=== PATIENT | male | born 1985 | race Caucasian/White ===

== ENCOUNTER 2016-10-22 06:40 | Emergency (ER) | payer BC, OTHER ==
[2016-10-22 08:02] LABS: Hematocrit 46 % (42-52); Hemoglobin 15.5 g/dl (14.0-18.0); Mean Corpuscular HGB Conc 34 g/dl (31-36); Mean Corpuscular Hemoglobin 30 pg (27-31); Mean Corpuscular Volume 89 fL (80-94); Mean Platelet Volume 9 um3 (7.4-10.4); Red Blood Count 5.13 10^6/ul (4.0-5.4); Red Cell Distribution Width 13 % (10.5-15); White Blood Count 9.8 10^3/ul (3.5-10.8)
[2016-10-22 08:14] LABS: Albumin 4.5 g/dL (3.2-5.2); BUN/Creatinine Ratio 16.5 (8-20); Calcium 9.7 mg/dL (8.6-10.3); EGFR African American 115.4 (>60); EGFR Non-African American 89.7 (>60); Globulin 3.5 g/dL (2-4); Potassium 4.1 mmol/L (3.5-5.0); Total Bilirubin 0.5 mg/dL (0.2-1.0)
[2016-10-22 08:38] LABS: Urine Bilirubin Negative (Negative); Urine Glucose Negative (Negative); Urine Nitrite Negative (Negative)
[2016-10-22 08:41] LABS: TSH (Thyroid Stimulating Horm) 2.61 mcIU/mL (0.34-5.60)
--- NOTE | 2016-10-22 10:06 | ED ---
Neville Patel Anna, scribed for Galen Lopez MD on 10/22/16 at 0707 . GI/ HPI - HPI Summary HPI Summary: Patient is a 31 y/o male coming to [facility] presenting with sudden onset of generalized weakness that began two evenings ago. He ate wings, burgers, and a few beers two days ago, then experienced weakness followed by emesis. He went to sleep and then woke up feeling better. He went to work yesterday and ate his lunch normally at 1100. He then felt a loss of appetite at 1300. He was seen at [facility] at 1400 yesterday. He continues to feel weak but denies nausea or pain. He reports that he normally does not drink water, just soda. He has been drinking Gatorade. - History of Current Complaint Chief Complaint: EDWeakness Stated Complaint: GENERAL ILLNESS/WEAKNESS Hx Obtained From: Patient, Family/Licensed Certified Orthotist - Accompanied by Onset/Duration: Started Days Ago, Still Present Timing: Intermittent, Lasting Days Pain Intensity: 0 - Allergy/Home Medications Allergies/Adverse Reactions: Allergies Allergy/AdvReac Type Severity Reaction Status Date / Time No Known Allergies Allergy Verified 05/28/14 18:25 PMH/Surg Hx/FS Hx/Imm Hx Cardiovascular History: Reports: Hx Hypertension Respiratory History: Reports: Hx Sleep Apnea Infectious Disease History: No Infectious Disease History: Denies: Traveled Outside the [place] in Last 30 Days - Family History Known Family History: Positive: Hypertension - Hx in mother and father Negative: Cardiac Disease, Diabetes - Social History Occupation: Employed Full-time Lives: With Family Alcohol Use: Occasionally Substance Use Type: Reports: None Hx Tobacco Use: Yes Type: Smokeless Tobacco Amount Used/How Often: 1 tin/day Review of Systems Positive: Other - Loss of appetite Positive: Vomiting. Negative: Abdominal Pain, Nausea Positive: Weakness All Other Systems Reviewed And Are Negative: Yes Physical Exam Triage Information Reviewed: Yes Vital Signs On Initial Exam: Initial Vitals Temp Pulse Resp BP Pulse Ox 96.9 F 82 18 174/96 100 10/22/16 06:47 10/22/16 06:47 10/22/16 06:47 10/22/16 06:47 10/22/16 06:47 Vital Signs Reviewed: Yes Appearance: Positive: Well-Appearing, No Pain Distress, Obese Skin: Positive: Warm, Skin Color Reflects Adequate Perfusion, Dry Head/Face: Positive: Normal Head/Face Inspection Eyes: Positive: Normal ENT: Positive: Normal ENT inspection Neck: Positive: Supple, Nontender Respiratory/Lung Sounds: Positive: Clear to Auscultation, Breath Sounds Present Cardiovascular: Positive: RRR Abdomen Description: Positive: Nontender, Soft Bowel Sounds: Positive: Present Musculoskeletal: Positive: Normal Neurological: Positive: Normal Psychiatric: Positive: Affect/Mood Appropriate Diagnostics - Vital Signs Vital Signs Temp Pulse Resp BP Pulse Ox 10/22/16 06:52 80 99 10/22/16 06:47 96.9 F 82 18 174/96 100 - Laboratory Lab Results: Lab Results 10/22/16 10/22/16 10/22/16 Range/Units 07:42 07:45 07:45 WBC 9.8 (3.5-10.8) 10^3/ul RBC 5.13 (4.0-5.4) 10^6/ul Hgb 15.5 (14.0-18.0) g/dl Hct 46 (42-52) % MCV 89 (80-94) fL MCH 30 (27-31) pg MCHC 34 (31-36) g/dl RDW 13 (10.5-15) % Plt Count 328 (150-450) 10^3/ul MPV 9 (7.4-10.4) um3 Neut % (Auto) 71.4 (38-83) % Lymph % (Auto) 20.4 L (25-47) % Jay % (Auto) 6.8 (1-9) % Eos % (Auto) 0.5 (0-6) % Baso % (Auto) 0.9 (0-2) % Absolute Neuts (auto) 7.0 (1.5-7.7) 10^3/ul Absolute Lymphs (auto) 2.0 (1.0-4.8) 10^3/ul Absolute Monos (auto) 0.7 (0-0.8) 10^3/ul Absolute Eos (auto) 0.1 (0-0.6) 10^3/ul Absolute Basos (auto) 0.1 (0-0.2) 10^3/ul Absolute Nucleated RBC 0 10^3/ul Nucleated RBC % 0 Sodium 137 (133-145) mmol/L Potassium 4.1 (3.5-5.0) mmol/L Chloride 101 (101-111) mmol/L Carbon Dioxide 28 (22-32) mmol/L Anion Gap 8 (2-11) mmol/L BUN 16 (6-24) mg/dL Creatinine 0.97 (0.67-1.17) mg/dL Est GFR ( Amer) 115.4 (>60) Est GFR (Non-Af Amer) 89.7 (>60) BUN/Creatinine Ratio 16.5 (8-20) Glucose 108 H (70-100) mg/dL Lactic Acid (0.5-2.0) mmol/L Calcium 9.7 (8.6-10.3) mg/dL Total Bilirubin 0.50 (0.2-1.0) mg/dL AST 25 (13-39) U/L ALT 31 (7-52) U/L Alkaline Phosphatase 84 (34-104) U/L Troponin I 0.00 (<0.04) ng/mL Total Protein 8.0 (6.4-8.9) g/dL Albumin 4.5 (3.2-5.2) g/dL Globulin 3.5 (2-4) g/dL Albumin/Globulin Ratio 1.3 (1-3) TSH 2.61 (0.34-5.60) mcIU/mL Urine Color Yellow Urine Appearance Clear Urine pH 5.0 (5-9) Ur Specific [place] 1.023 (1.010-1.030) Urine Protein Negative (Negative) Urine Ketones Negative (Negative) Urine Blood Negative (Negative) Urine Nitrate Negative (Negative) Urine Bilirubin Negative (Negative) Urine Urobilinogen Negative (Negative) Ur Leukocyte Esterase Negative (Negative) Urine Glucose Negative (Negative) 10/22/16 Range/Units 07:45 WBC (3.5-10.8) 10^3/ul RBC (4.0-5.4) 10^6/ul Hgb (14.0-18.0) g/dl Hct (42-52) % MCV (80-94) fL MCH (27-31) pg MCHC (31-36) g/dl RDW (10.5-15) % Plt Count (150-450) 10^3/ul MPV (7.4-10.4) um3 Neut % (Auto) (38-83) % Lymph % (Auto) (25-47) % Jay % (Auto) (1-9) % Eos % (Auto) (0-6) % Baso % (Auto) (0-2) % Absolute Neuts (auto) (1.5-7.7) 10^3/ul Absolute Lymphs (auto) (1.0-4.8) 10^3/ul Absolute Monos (auto) (0-0.8) 10^3/ul Absolute Eos (auto) (0-0.6) 10^3/ul Absolute Basos (auto) (0-0.2) 10^3/ul Absolute Nucleated RBC 10^3/ul Nucleated RBC % Sodium (133-145) mmol/L Potassium (3.5-5.0) mmol/L Chloride (101-111) mmol/L Carbon Dioxide (22-32) mmol/L Anion Gap (2-11) mmol/L BUN (6-24) mg/dL Creatinine (0.67-1.17) mg/dL Est GFR ( Amer) (>60) Est GFR (Non-Af Amer) (>60) BUN/Creatinine Ratio (8-20) Glucose (70-100) mg/dL Lactic Acid 1.2 (0.5-2.0) mmol/L Calcium (8.6-10.3) mg/dL Total Bilirubin (0.2-1.0) mg/dL AST (13-39) U/L ALT (7-52) U/L Alkaline Phosphatase (34-104) U/L Troponin I (<0.04) ng/mL Total Protein (6.4-8.9) g/dL Albumin (3.2-5.2) g/dL Globulin (2-4) g/dL Albumin/Globulin Ratio (1-3) TSH (0.34-5.60) mcIU/mL Urine Color Urine Appearance Urine pH (5-9) Ur Specific [place] (1.010-1.030) Urine Protein (Negative) Urine Ketones (Negative) Urine Blood (Negative) Urine Nitrate (Negative) Urine Bilirubin (Negative) Urine Urobilinogen (Negative) Ur Leukocyte Esterase (Negative) Urine Glucose (Negative) Result Diagrams: 10/22/16 07:45 10/22/16 07:45 Lab Statement: Any lab studies that have been ordered have been reviewed, and results considered in the medical decision making process. - EKG 0750 Cardiac Rate: NL - 76 bpm EKG Rhythm: Sinus Rhythm ST Segment: Normal Ectopy: None Re-Evaluation - Re-Evaluation First Eval Re-Evaluation Time: 09:46 Change: Unchanged Comment: Discussed results of labs and plan of care with patient and family. Discussed how to eat and how to transition his diet. Patient and family are agreeable with plan. GIGU Course/Dx - Course Course Of Treatment: Mr. Russell's exam is benign here today and although he was hypertensive on arrival, his BP came down nicely without any intervention except reassurance. We talked about some high return/low investment practices to start transitioning his diet. - Diagnoses Provider Diagnoses: Weakness Discharge - Discharge Plan Condition: Stable Disposition: HOME Patient Education Materials: Weakness (ED) Referrals: Alireza Culp LABEL REMOVER [Primary Care Provider] - Additional Instructions: Follow up with primary care provider within 48 hours. Return to the emergency department for any new or worsening symptoms. The documentation as recorded by the Neville arias Anna accurately reflects the service I personally performed and the decisions made by me, Galen Lopez MD.
[2016-10-22 10:34] VITALS: BP 161/96
== END 2016-10-22 10:32 | disposition home or self-care (01) ==
LOC: ED 06:40
DX: R53.1 Weakness (principal); R11.10 Vomiting, unspecified; R63.0 Anorexia; F17.220 Nicotine dependence, chewing tobacco, uncomplicated
CPT/HCPCS: 36415; 80053; 81003; 83605; 84443; 84484; 85025; 93005; 99282

== ENCOUNTER 2017-09-20 06:15 | Emergency (ER) | payer BC ==
[2017-09-20 08:10] VITALS: BP 132/78
--- NOTE | 2017-09-20 08:59 | ED ---
Ajit Patel Tiffany, scribed for Tonja Slater MD on 09/20/17 at 0735 . Skin Complaint - HPI Summary HPI Summary: The patient is a 32 year old M presenting to [facility] accompanied by complains of right-sided neck lump since 2011, worse since four days ago. The patient rates the pain 3/10 in severity. Symptoms aggravated by nothing. Symptoms alleviated by nothing. Denies fever. Reports sinus infection a few weeks ago. Last night, noticed that lump was enlarged and tender to the touch. - History of Current Complaint Chief Complaint: EDRashSkinAbscess Time Seen by Provider: 09/20/17 07:14 Stated Complaint: LUMP ON NECK Hx Obtained From: Patient, Family/[employer] Specialist - Onset/Duration: Started Weeks Ago - Since 2011 has felt a lump at the same site , Still Present, Worse Since - Four days ago, and then redness last pm Timing: Constant Onset Severity: Mild Current Severity: Mild Pain Intensity: 3 Pain Scale Used: 0-10 Numeric Skin Location: Neck - Right side Character: Swelling, Pain, Redness, Raised, Painful Aggravating Symptom(s): Nothing Alleviating Symptom(s): Nothing Associated Signs & Symptoms: Negative - Fever, drainage, red streaks, Tenderness Related History: Other: - no hx MRSA - Allergy/Home Medications Allergies/Adverse Reactions: Allergies Allergy/AdvReac Type Severity Reaction Status Date / Time No Known Allergies Allergy Verified 05/28/14 18:25 PMH/Surg Hx/FS Hx/Imm Hx Previously Healthy: No Cardiovascular History: Reports: Hx Hypertension Respiratory History: Reports: Hx Sleep Apnea, Other Respiratory Problems/ Disorders - Has hypolastic lung Psychiatric History: Reports: Hx Anxiety - Surgical History Surgery Procedure, Year, and Place: Bronchoscope Infectious Disease History: No Infectious Disease History: Denies: Traveled Outside the [place] in Last 30 Days - Family History Known Family History: Positive: Hypertension - Hx in mother and father Negative: Cardiac Disease, Diabetes - Social History Occupation: Employed Full-time Lives: With Family Alcohol Use: Occasionally Hx Substance Use: No Substance Use Type: Reports: None Hx Tobacco Use: Yes Type: Smokeless Tobacco Amount Used/How Often: 1 tin/day Review of Systems Negative: Fever Cardiovascular: Negative Respiratory: Negative Positive: Other - Right-sided neck lump Neurological: Negative Psychological: Normal All Other Systems Reviewed And Are Negative: Yes Physical Exam - Summary Physical Exam Summary: Appearance:mildly Ill-appearing, moderate pain distress, Well-nourished Skin: 2-cm red, indurated area on his right lateral neck that is tender and not fluctuant Head: Normal Head/Face inspection Eyes: Conjunctiva clear ENT: Normal inspection Neck: 2cm mass as above. No surrounding cellulitis and lymphangitic streak. Neck is supple. Respiratory: Lungs clear, Normal breath sounds, no respiratory distress Cardio: RRR, No murmur, pulses normal, brisk capillary refill Musculoskeletal: Strength Intact/ ROM intact. No calf tenderness. No edema. Neuro: Alert, muscle tone normal, facial symmetry, speech normal, sensory/motor intact Psychological: Normal Triage Information Reviewed: Yes Vital Signs On Initial Exam: Initial Vitals Temp Pulse Resp BP Pulse Ox 97.1 F 82 16 151/96 97 09/20/17 06:22 09/20/17 06:22 09/20/17 06:22 09/20/17 06:22 09/20/17 06:22 Vital Signs Reviewed: Yes Diagnostics - Vital Signs Vital Signs Temp Pulse Resp BP Pulse Ox 09/20/17 06:22 97.1 F 82 16 151/96 97 - Laboratory Lab Statement: Any lab studies that have been ordered have been reviewed, and results considered in the medical decision making process. Course/Dx - Course Course Of Treatment: High blood pressure noted. Medications reviewed this visit. Examined neck lump. Patient will be discharged with prescription for antibiotics and advised definite follow up from his primary care provider ( Alireza Culp). Advised to return Emergency Department if he would like abscess drained or it begins to drain. Patient and are agreeable with this plan. - Differential Diagnoses - Skin Complaint Differential Diagnoses: Abscess, Cellulitis, MRSA, Other - neoplasia - Diagnoses Provider Diagnoses: Abscess Discharge - Discharge Plan Condition: Stable Disposition: HOME Prescriptions: Cephalexin CAP* [Keflex 500 CAP*] 500 mg PO QID #40 cap Sulfamethox/Trimethoprim DS* [Bactrim DS 800/160 TAB*] 1 tab PO BID #20 tab Patient Education Materials: Abscess (ED) Forms: *Work Release Referrals: Alireza Culp NP [Primary Care Provider] - Additional Instructions: Dr. Slater advises that you should hot-pack the abscess with moist, warm cloths at least four times a day. You should not "squeeze" or try to drain the abscess. Take both antibiotics as directed. Have definite follow up with Varsah Culp on Friday09/22/17, sooner if needed. Return to the ER if you have new or worsening symptoms. The documentation as recorded by the Ajit arias Tiffany accurately reflects the service I personally performed and the decisions made by me, Tonja Slater MD.
== END 2017-09-20 08:09 | disposition home or self-care (01) ==
LOC: ED 06:15
DX: L02.11 Cutaneous abscess of neck (principal); I10 Essential (primary) hypertension; F17.200 Nicotine dependence, unspecified, uncomplicated
CPT/HCPCS: 99282

== ENCOUNTER 2017-12-24 22:05 | Emergency (ER) | payer SELFPAY ==
[2017-12-24] MEDS ORDERED: oxyCODONE/Acetamin 5/325 MG* TAB PO ONE (23:01)
[2017-12-25 00:15] VITALS: BP 135/85
--- NOTE | 2017-12-25 07:40 | RAD ---
INDICATION: Right knee injury. TECHNIQUE: 4 views of the right knee were obtained. FINDINGS: The bones are in normal alignment. No joint effusion or fracture is seen. Joint spaces appear maintained. IMPRESSION: NO EVIDENCE FOR FRACTURE.
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
== END 2017-12-25 00:12 | disposition home or self-care (01) ==
LOC: ED 22:05
DX: S83.91XA Sprain of unspecified site of right knee, initial encounter (principal); S80.211A Abrasion, right knee, initial encounter; S50.311A Abrasion of right elbow, initial encounter; V29.9XXA Motorcycle rider (driver) (passenger) injured in unspecified traffic accident, initial encounter; Y93.89 Activity, other specified; Y92.9 Unspecified place or not applicable; I10 Essential (primary) hypertension; G47.30 Sleep apnea, unspecified; Q33.6 Congenital hypoplasia and dysplasia of lung; F41.9 Anxiety disorder, unspecified; Z82.49 Family history of ischemic heart disease and other diseases of the circulatory system; F17.220 Nicotine dependence, chewing tobacco, uncomplicated
CPT/HCPCS: 99283; A9270-GY

== ENCOUNTER 2018-02-13 23:24 | Emergency (ER) | payer BC ==
[2018-02-14] MEDS ORDERED: Penicillin VK TAB* 250 MG PO ONE (00:41)
--- NOTE | 2018-02-14 00:44 | ED ---
Throat Pain/Nasal Congestion - HPI Summary HPI Summary: This is hugo Loredo documenting for attending Galen Smith MD. This patient is a 33 year old M presenting to [facility] with a chief complaint of upper right side dental pain since 3 days ago. The patient reports that he has an appointment to see a dentist on 02/23 but the pain has been so bad recently that he decided to come to the ED tonight. The patient rates the pain 8/10 in severity. Symptoms aggravated by nothing. Symptoms alleviated by nothing. Patient notes he has been taking ibuprofen for the pain. - History of Current Complaint Chief Complaint: EDDentalPain Time Seen by Provider: 02/14/18 00:32 Hx Obtained From: Patient Onset/Duration: Gradual Onset, Lasting Days - 3 days, Still Present - Allergies/Home Medications Allergies/Adverse Reactions: Allergies Allergy/AdvReac Type Severity Reaction Status Date / Time shellfish derived Allergy Hives Verified 02/14/18 00:53 PMH/Surg Hx/FS Hx/Imm Hx Cardiovascular History: Reports: Hx Hypertension Respiratory History: Reports: Hx Sleep Apnea, Other Respiratory Problems/ Disorders - Has hypolastic lung Psychiatric History: Reports: Hx Anxiety - Surgical History Surgery Procedure, Year, and Place: Bronchoscope Infectious Disease History: No Infectious Disease History: Denies: Traveled Outside the [place] in Last 30 Days - Family History Known Family History: Positive: Hypertension - Hx in mother and father Negative: Cardiac Disease, Diabetes - Social History Alcohol Use: Occasionally Hx Substance Use: No Substance Use Type: Reports: None Hx Tobacco Use: Yes Smoking Status (MU): Smoker, Current Status Unknown Type: Smokeless Tobacco Amount Used/How Often: 1 tin/day Review of Systems Negative: Fever Positive: Dental Pain Negative: Cough Negative: Vomiting All Other Systems Reviewed And Are Negative: Yes Physical Exam - Summary Physical Exam Summary: Appearance: Well-appearing, Well-nourished, lying in bed comfortably Skin: Warm, dry, no obvious rash Eyes: sclera anicteric, no conjunctival pallor ENT: mucous membranes moist, pharynx appears normal, tenderness under upper 3rd molar, upper 3rd molar looks quite broken down, no trismus, no facial cellulitis Neck: Supple, nontender, no neck swelling Respiratory: Clear to auscultation, no signs of respiratory distress Cardiovascular: Normal S1, S2. No murmurs. Normal distal pulses in tibial and radial bilaterally. Abdomen: Soft, nontender, normal active bowel sounds present Musculoskeletal: Normal, Strength/ROM Intact Neurological: A&Ox3, awake and alert, mentation is normal, speech is fluent and appropriate Psychiatric: affect is normal, does not appear anxious or depressed Triage Information Reviewed: Yes Vital Signs On Initial Exam: Initial Vitals Temp Pulse Resp BP Pulse Ox 96.5 F 70 20 170/114 99 02/13/18 23:27 02/13/18 23:27 02/13/18 23:27 02/13/18 23:27 02/13/18 23:27 Vital Signs Reviewed: Yes Diagnostics - Vital Signs Vital Signs Temp Pulse Resp BP Pulse Ox 02/13/18 23:27 96.5 F 70 20 170/114 99 - Laboratory Lab Statement: Any lab studies that have been ordered have been reviewed, and results considered in the medical decision making process. EENT Course/Dx - Course Course Of Treatment: The patient was offered a dental block but declined. - Diagnoses Provider Diagnoses: Dental abscess Discharge - Sign-Out/Discharge Documenting (check all that apply): Patient Departure - Discharge Plan Condition: Good Disposition: HOME Prescriptions: Penicillin VK 500 MG TAB(NF) [Penicillin VK 500 mg Tab] 500 mg PO QID #40 tab Patient Education Materials: Dental Abscess (ED) Referrals: Alireza Culp CLERK OF COURT [Primary Care Provider] - - Billing Disposition and Condition Condition: GOOD Disposition: Home
[2018-02-14 01:05] VITALS: BP 0/0
== END 2018-02-14 01:04 | disposition home or self-care (01) ==
LOC: ED 23:24
DX: K08.89 Other specified disorders of teeth and supporting structures (principal); F17.210 Nicotine dependence, cigarettes, uncomplicated; K04.7 Periapical abscess without sinus; Z86.79 Personal history of other diseases of the circulatory system
CPT/HCPCS: 99281; A9270-GY

== ENCOUNTER 2018-05-11 09:10 | Emergency (ER) | payer BC ==
[2018-05-11] MEDS ORDERED: Oxymetazoline 0.05% NASAL SPR* 15 ML BTL LEFT NARE ONE (09:26)
--- NOTE | 2018-05-11 10:30 | ED ---
Throat Pain/Nasal Congestion - HPI Summary HPI Summary: 33-year-old male presents with nosebleed for the past hour. He states he had nosebleed yesterday. He has history of nose bleeds. Is not on blood thinners. He states the bleeding started from left nostril and then moved to bleeding in his right nostril. He states tried to tip his head back to control the bleeding. He is not on any intranasal steroids. Has history of high blood pressure. - History of Current Complaint Chief Complaint: EDEpistaxis Time Seen by Provider: 05/11/18 09:25 - Allergies/Home Medications Allergies/Adverse Reactions: Allergies Allergy/AdvReac Type Severity Reaction Status Date / Time shellfish derived Allergy Hives Verified 05/11/18 09:18 Home Medications: Home Medications Ibuprofen TAB* [Motrin TAB* 400 MG] 400 mg PO Q6H PRN 05/11/18 [History Confirmed 05/11/18] Lisinopril 10 mg PO DAILY 05/11/18 [History Confirmed 05/11/18] PMH/Surg Hx/FS Hx/Imm Hx Endocrine/Hematology History: Denies: Hx Anticoagulant Therapy Cardiovascular History: Reports: Hx Hypertension Respiratory History: Reports: Hx Sleep Apnea, Other Respiratory Problems/ Disorders - Has hypolastic lung Psychiatric History: Reports: Hx Anxiety - Surgical History Surgery Procedure, Year, and Place: Bronchoscope - Immunization History Date of Tetanus Vaccine: utd Date of Influenza Vaccine: none Infectious Disease History: No Infectious Disease History: Denies: Traveled Outside the [place] in Last 30 Days - Family History Known Family History: Positive: Hypertension - Hx in mother and father Negative: Cardiac Disease, Diabetes - Social History Alcohol Use: Occasionally Hx Substance Use: No Substance Use Type: Reports: None Hx Tobacco Use: Yes Smoking Status (MU): Smoker, Current Status Unknown Type: Smokeless Tobacco Amount Used/How Often: 1 tin/day Review of Systems Negative: Fever Positive: Epistaxis Negative: Chest Pain Negative: Shortness Of Breath All Other Systems Reviewed And Are Negative: Yes Physical Exam Triage Information Reviewed: Yes Vital Signs On Initial Exam: Initial Vitals Temp Pulse Resp BP Pulse Ox 97.5 F 70 16 138/93 98 05/11/18 09:15 05/11/18 09:15 05/11/18 09:15 05/11/18 09:15 05/11/18 09:15 Vital Signs Reviewed: Yes Appearance: Positive: Well-Appearing Skin: Positive: Warm, Dry Head/Face: Positive: Normal Head/Face Inspection Eyes: Positive: Normal, Conjunctiva Clear ENT: Positive: Pharynx normal, TMs normal, Other - blood bilateral nares, area of bleeding noted in left nares Respiratory/Lung Sounds: Positive: Clear to Auscultation, Breath Sounds Present Cardiovascular: Positive: Normal, RRR Musculoskeletal: Positive: Normal Neurological: Positive: Normal Psychiatric: Positive: Normal Diagnostics - Vital Signs Vital Signs Temp Pulse Resp BP Pulse Ox 05/11/18 09:15 97.5 F 70 16 138/93 98 - Laboratory Lab Statement: Any lab studies that have been ordered have been reviewed, and results considered in the medical decision making process. EENT Course/Dx - Course Course Of Treatment: 33-year-old male presents with nosebleed for the past hour. He states he had nosebleed yesterday. He has history of nose bleeds. Is not on blood thinners. He states the bleeding started from left nostril and then moved to bleeding in his right nostril. He states tried to tip his head back to control the bleeding. He is not on any intranasal steroids. Has history of high blood pressure. was given afrin and nose clip for 30 mins. when evulated nares no active bleeding left nostril but area was seen were bleeding was from. cauterized area and no rebleeding. told if rebleeds to try afrin again. patient understand and agrees with plan. - Differential Diagnoses Differential Diagnoses: Epistaxis, Sinusitis - Diagnoses Provider Diagnoses: Epistaxis Discharge - Sign-Out/Discharge Documenting (check all that apply): Patient Departure - Discharge Plan Condition: Good Disposition: HOME Patient Education Materials: Nosebleed (ED) Forms: *Work Release Referrals: Alireza Culp NP [Primary Care Provider] - Additional Instructions: use afrin for nose rebleeds and apply pressure if after such continues to bleed return to ED use nasal saline in nose Return to ED if develop any new or worsening symptoms - Billing Disposition and Condition Condition: GOOD Disposition: Home
[2018-05-11 11:19] VITALS: BP 131/95
== END 2018-05-11 11:19 | disposition home or self-care (01) ==
LOC: ED 09:10
DX: R04.0 Epistaxis (principal); I10 Essential (primary) hypertension; F17.220 Nicotine dependence, chewing tobacco, uncomplicated
CPT/HCPCS: 99281; A9270-GY

== ENCOUNTER 2018-05-12 07:22 | Emergency (ER) | payer BC ==
[2018-05-12] MEDS ORDERED: Lidocaine 2% JELLY* 10 ML JELLY TOPICAL ONE (07:38)
--- NOTE | 2018-05-12 07:38 | ED ---
Throat Pain/Nasal Congestion - History of Current Complaint Chief Complaint: EDEpistaxis Hx Obtained From: Patient Onset/Duration: Lasting Hours - Since 22:00 hrs on 05/11/2018 - Allergies/Home Medications Allergies/Adverse Reactions: Allergies Allergy/AdvReac Type Severity Reaction Status Date / Time shellfish derived Allergy Hives Verified 05/12/18 07:27 PMH/Surg Hx/FS Hx/Imm Hx Endocrine/Hematology History: Denies: Hx Anticoagulant Therapy Cardiovascular History: Reports: Hx Hypertension Respiratory History: Reports: Hx Sleep Apnea, Other Respiratory Problems/ Disorders - Has hypolastic lung Psychiatric History: Reports: Hx Anxiety - Surgical History Surgery Procedure, Year, and Place: Bronchoscope - Immunization History Date of Tetanus Vaccine: utd Date of Influenza Vaccine: none Infectious Disease History: No Infectious Disease History: Denies: Traveled Outside the [place] in Last 30 Days - Family History Known Family History: Positive: Hypertension - Hx in mother and father Negative: Cardiac Disease, Diabetes - Social History Alcohol Use: Occasionally Hx Substance Use: No Substance Use Type: Reports: None Hx Tobacco Use: Yes Smoking Status (MU): Light Every Day Tobacco Smoker Type: Smokeless Tobacco Amount Used/How Often: 1 tin/day Physical Exam Vital Signs On Initial Exam: Initial Vitals Temp Pulse Resp BP Pulse Ox 98.0 F 70 18 152/88 100 05/12/18 07:24 05/12/18 07:24 05/12/18 07:24 05/12/18 07:24 05/12/18 07:24 Diagnostics - Vital Signs Vital Signs Temp Pulse Resp BP Pulse Ox 05/12/18 07:24 98.0 F 70 18 152/88 100 - Laboratory Lab Statement: Any lab studies that have been ordered have been reviewed, and results considered in the medical decision making process. Discharge - Sign-Out/Discharge Documenting (check all that apply): Patient Departure - Discharge Plan Referrals: Alireza Culp, [employer] [Primary Care Provider] - 2 Days Additional Instructions: Follow up with your PCP in 2 days. Return to the ED in case of new of worsening symptoms. - Attestation Statements Document Initiated by Scribe: Yes Documenting Scribe: Cat Lindo Provider For Whom Scribe is Documenting (Include Credential): Dr. Galen Lopez MD Scribe Attestation: Cat Patel scribed for Dr. Galen Lopez MD on 05/12/18 at 0736.
[2018-05-12] MEDS ORDERED: Lidocaine 2% JELLY* 6 ML JELLY TOPICAL ONE (07:46)
--- NOTE | 2018-05-12 07:47 | ED ---
Throat Pain/Nasal Congestion - HPI Summary HPI Summary: 33 year old male returns with nosebleed today. The area was cauterized yesterday and it stopped bleeding. last night the bleeding started again from the left nares. He states he took some afrin and it stopped. He states that today he went to lift something and it started to bleed again. it is not actively bleeding. not on blood thinners. no dizziness or other symptoms. - History of Current Complaint Chief Complaint: EDEpistaxis Time Seen by Provider: 05/12/18 07:32 - Allergies/Home Medications Allergies/Adverse Reactions: Allergies Allergy/AdvReac Type Severity Reaction Status Date / Time shellfish derived Allergy Hives Verified 05/12/18 07:27 PMH/Surg Hx/FS Hx/Imm Hx Endocrine/Hematology History: Denies: Hx Anticoagulant Therapy Cardiovascular History: Reports: Hx Hypertension Respiratory History: Reports: Hx Sleep Apnea, Other Respiratory Problems/ Disorders - Has hypolastic lung Psychiatric History: Reports: Hx Anxiety - Surgical History Surgery Procedure, Year, and Place: Bronchoscope - Immunization History Date of Tetanus Vaccine: utd Date of Influenza Vaccine: none Infectious Disease History: No Infectious Disease History: Denies: Traveled Outside the [place] in Last 30 Days - Family History Known Family History: Positive: Hypertension - Hx in mother and father Negative: Cardiac Disease, Diabetes - Social History Alcohol Use: Occasionally Hx Substance Use: No Substance Use Type: Reports: None Hx Tobacco Use: Yes Smoking Status (MU): Light Every Day Tobacco Smoker Type: Smokeless Tobacco Amount Used/How Often: 1 tin/day Review of Systems Negative: Fever Positive: Epistaxis Negative: Chest Pain Negative: Shortness Of Breath All Other Systems Reviewed And Are Negative: Yes Physical Exam Triage Information Reviewed: Yes Vital Signs On Initial Exam: Initial Vitals Temp Pulse Resp BP Pulse Ox 98.0 F 70 18 152/88 100 05/12/18 07:24 05/12/18 07:24 05/12/18 07:24 05/12/18 07:24 05/12/18 07:24 Vital Signs Reviewed: Yes Appearance: Positive: Well-Appearing Skin: Positive: Warm, Dry Head/Face: Positive: Normal Head/Face Inspection Eyes: Positive: Normal, EOMI, MIKE, Conjunctiva Clear ENT: Positive: Pharynx normal, TMs normal, Other - no active bleeding from left nares Respiratory/Lung Sounds: Positive: Clear to Auscultation, Breath Sounds Present Cardiovascular: Positive: Normal, RRR Musculoskeletal: Positive: Normal Neurological: Positive: Normal Psychiatric: Positive: Normal Procedures - Procedure Summary Procedure Summary: rhino rocket 4.5cm placed lidocaine and afrin placed rhino rocket and inflated with 10cc. Diagnostics - Vital Signs Vital Signs Temp Pulse Resp BP Pulse Ox 05/12/18 07:24 98.0 F 70 18 152/88 100 - Laboratory Lab Statement: Any lab studies that have been ordered have been reviewed, and results considered in the medical decision making process. EENT Course/Dx - Course Course Of Treatment: 33 year old male returns with nosebleed today. The area was cauterized yesterday and it stopped bleeding. last night the bleeding started again from the left nares. He states he took some afrin and it stopped. He states that today he went to lift something and it started to bleed again. it is not actively bleeding. not on blood thinners. no dizziness or other symptoms. on exam no active bleeding left nares. with recurrent nose bleeds placed rhino rocket and inflated with 10cc. placed on augmentin. told to follow up with ENT. patient understand and agrees with plan. - Differential Diagnoses Differential Diagnoses: Allergic Rhinitis, Epistaxis, Sinusitis - Diagnoses Provider Diagnoses: Epistaxis Discharge - Sign-Out/Discharge Documenting (check all that apply): Patient Departure - Discharge Plan Condition: Good Disposition: HOME Prescriptions: Amoxicillin/Clavulanate TAB* [Augmentin TAB 875*] 875 mg PO BID #9 tab Patient Education Materials: Nosebleed (ED) Forms: *Work Release Referrals: Alireza Culp NP [Primary Care Provider] - 2 Days Demarco Anne MD [Medical Doctor] - Additional Instructions: Take tyenlol or ibuprofen every 6 hours as needed for pain Take augmentin twice a day for 5 days Follow up with ENT or return to ED in 2 days to have removed Return to the ED in case of new of worsening symptoms. - Billing Disposition and Condition Condition: GOOD Disposition: Home
[2018-05-12] MEDS ORDERED: Amoxicillin/Clavulanate TAB* 875 MG PO ONE (08:07)
[2018-05-12] MEDS ORDERED: Ibuprofen TAB* 600 MG PO ONE (08:11)
[2018-05-12 08:22] VITALS: BP 132/84
== END 2018-05-12 08:22 | disposition home or self-care (01) ==
LOC: ED 07:22
DX: R04.0 Epistaxis (principal); Z91.013 Allergy to seafood; F17.220 Nicotine dependence, chewing tobacco, uncomplicated
CPT/HCPCS: 99282; A9270-GY

== ENCOUNTER 2018-05-13 00:02 | Emergency (ER) | payer BC ==
--- NOTE | 2018-05-13 02:20 | ED ---
Throat Pain/Nasal Congestion - HPI Summary HPI Summary: The pt is a 33 y.o male with a chief complaint of Rhino rocket blockage in the nasal cavity. The pt states he wishes for the rhino rocket be removed. The pt was cauterized 2 days ago as per triage report. He denies any reports of bleeding or epistaxis. The rhino rocket was placed over 24 hours ago. Symptoms alleviated by nothing and aggravated by nothing. The pt is in mild discomfort. - History of Current Complaint Chief Complaint: EDGeneral Time Seen by Provider: 05/13/18 02:10 Hx Obtained From: Patient Onset/Duration: Sudden Onset, Lasting Days Severity: Mild - Allergies/Home Medications Allergies/Adverse Reactions: Allergies Allergy/AdvReac Type Severity Reaction Status Date / Time shellfish derived Allergy Hives Verified 05/13/18 00:10 PMH/Surg Hx/FS Hx/Imm Hx Endocrine/Hematology History: Denies: Hx Anticoagulant Therapy Cardiovascular History: Reports: Hx Hypertension Respiratory History: Reports: Hx Sleep Apnea, Other Respiratory Problems/ Disorders - Has hypolastic lung Psychiatric History: Reports: Hx Anxiety - Surgical History Surgery Procedure, Year, and Place: Bronchoscope - Immunization History Date of Tetanus Vaccine: utd Date of Influenza Vaccine: none Infectious Disease History: No Infectious Disease History: Denies: Traveled Outside the [place] in Last 30 Days - Family History Known Family History: Positive: Hypertension - Hx in mother and father Negative: Cardiac Disease, Diabetes - Social History Alcohol Use: Occasionally Hx Substance Use: No Substance Use Type: Reports: None Hx Tobacco Use: Yes Smoking Status (MU): Light Every Day Tobacco Smoker Type: Smokeless Tobacco Amount Used/How Often: 1 tin/day Review of Systems Constitutional: Negative Eyes: Negative ENT: Other - Rhino rocket blockage Negative: Epistaxis Cardiovascular: Negative Respiratory: Negative Gastrointestinal: Negative Genitourinary: Negative Musculoskeletal: Negative Skin: Negative Neurological: Negative Psychological: Other - Mild discomfort All Other Systems Reviewed And Are Negative: Yes Physical Exam - Summary Physical Exam Summary: VITAL SIGNS: Reviewed. GENERAL: Patient is a well-developed and nourished (MALE) who is lying comfortable in the stretcher. Patient is not in any acute respiratory distress. HEAD AND FACE: Left nostril hyperemia with low bleeding, and mucosa EYES: PERRLA, EOMI x 2, No injected conjunctiva, no nystagmus. EARS: Hearing grossly intact. Ear canals and tympanic membranes are within normal limits. MOUTH: Oropharynx within normal limits. NECK: Supple, trachea is midline, no adenopathy, no JVD, no carotid bruit, no c- spine tenderness, neck with full ROM. CHEST: Symmetric, no tenderness at palpation LUNGS: Clear to auscultation bilaterally. No wheezing or crackles. CVS: Regular rate and rhythm, S1 and S2 present, no murmurs or gallops appreciated. ABDOMEN: Soft, non-tender. No signs of distention. No rebound no guarding, and no masses palpated. Bowel sounds are normal. EXTREMITIES: FROM in all major joints, no edema, no cyanosis or clubbing. NEURO: Alert and oriented x 3. No acute neurological deficits. Speech is normal and follows commands. SKIN: Dry and warm Triage Information Reviewed: Yes Vital Signs On Initial Exam: Initial Vitals Temp Pulse Resp BP Pulse Ox 97.2 F 72 16 151/98 98 05/13/18 00:07 05/13/18 00:07 05/13/18 00:07 05/13/18 00:07 05/13/18 00:07 Vital Signs Reviewed: Yes Diagnostics - Vital Signs Vital Signs Temp Pulse Resp BP Pulse Ox 05/13/18 02:08 97.7 F 63 16 149/94 100 05/13/18 00:07 97.2 F 72 16 151/98 98 - Laboratory Lab Statement: Any lab studies that have been ordered have been reviewed, and results considered in the medical decision making process. EENT Course/Dx - Course Course Of Treatment: The pt is a 33 y.o male who reports he wants to have his rhino rocket removed. Upon removal of rhino rocket we discussed discharge plan with the pt. We recommended using saline nasal spray and Afrin often and to follow up with an ENT physician. The pt will be discharged home with a dx of epistaxis. - Diagnoses Provider Diagnoses: Epistaxis Discharge - Sign-Out/Discharge Documenting (check all that apply): Patient Departure - Discharge Home - Discharge Plan Condition: Stable Disposition: HOME Patient Education Materials: Nosebleed (ED) Referrals: Alireza Culp [employer] [Primary Care Provider] - Additional Instructions: RETURN TO THE EMERGENCY DEPARTMENT FOR CHANGING OR WORSENING SYMPTOMS. FOLLOW UP WITH ENT Physician within 1 to 2 day. WE recommend the the pt to keep using saline nasal spray and Afrin - Attestation Statements Document Initiated by Scribe: Yes Documenting Scribe: Mario Pfeiffer Provider For Whom Scribe is Documenting (Include Credential): Dr. Yisel Porter Scribe Attestation: IMario, scribed for Dr. Yisel Porter on 05/13/18 at 0519.
[2018-05-13 02:24] VITALS: BP 00/00
== END 2018-05-13 02:23 | disposition home or self-care (01) ==
LOC: ED 00:02
DX: R04.0 Epistaxis (principal); Z91.013 Allergy to seafood; F17.220 Nicotine dependence, chewing tobacco, uncomplicated
CPT/HCPCS: 99281

== ENCOUNTER 2018-10-09 07:35 | Emergency (ER) | payer BC ==
[2018-10-09] MEDS ORDERED: Ibuprofen TAB* 600 MG PO ONE (07:56)
--- NOTE | 2018-10-09 08:35 | ED ---
Lower Extremity - HPI Summary HPI Summary: Patient is a 33-year-old male who presents to the ED with right ankle pain after rolling her ankle this morning. He endorses swelling without ecchymosis. He endorses pain to the lateral ankle without pain to the medial side. He was ambulating, however with pain. He endorses pain with plantarflexion and dorsiflexion. He has not taken anything for pain prior to arrival. He was recently seen 2 days ago for PNA. - History of Current Complaint Chief Complaint: EDExtremityLower Stated Complaint: STEPPED ON KNOT ON DOG LEASH, ROLLED ANKLE PER PT Time Seen by Provider: 10/09/18 07:50 Mechanism Of Injury: Twisted Onset/Duration: Hours Severity Initially: Mild Severity Currently: Mild Pain Intensity: 7 Pain Scale Used: 0-10 Numeric Location: Is Discrete @ - right ankle pain and swelling Character Of Pain: Aching Associated Signs And Symptoms: Positive: Swelling. Negative: Redness, Bruising , Weakness Aggravating Factor(s): Standing, Ambulation Alleviating Factor(s): Rest Able to Bear Weight: No - Risk Factors Gout Risk Factors: Negative DVT Risk Factors: Negative Septic Arthritis Risk Factor: Negative - Allergies/Home Medications Allergies/Adverse Reactions: Allergies Allergy/AdvReac Type Severity Reaction Status Date / Time shellfish derived Allergy Hives Verified 10/09/18 07:40 PMH/Surg Hx/FS Hx/Imm Hx Previously Healthy: Yes Endocrine/Hematology History: Denies: Hx Anticoagulant Therapy Cardiovascular History: Reports: Hx Hypertension Respiratory History: Reports: Hx Sleep Apnea, Other Respiratory Problems/ Disorders - Has hypolastic lung Psychiatric History: Reports: Hx Anxiety - Surgical History Surgery Procedure, Year, and Place: Bronchoscope - Immunization History Date of Tetanus Vaccine: utd Date of Influenza Vaccine: none Hx Pertussis Vaccination: No Immunizations Up to Date: Yes Infectious Disease History: No Infectious Disease History: Denies: Traveled Outside the [place] in Last 30 Days - Family History Known Family History: Positive: Hypertension - Hx in mother and father Negative: Cardiac Disease, Diabetes - Social History Occupation: Employed Full-time Lives: With Family Alcohol Use: Occasionally Hx Substance Use: No Substance Use Type: Reports: None Hx Tobacco Use: Yes Smoking Status (MU): Never Smoked Tobacco Type: Smokeless Tobacco Amount Used/How Often: 1 tin/day Review of Systems Constitutional: Negative Negative: Fever, Chills, Fatigue, Skin Diaphoresis Negative: Palpitations, Chest Pain Negative: Shortness Of Breath, Cough Positive: Arthralgia - right ankle swelling, Myalgia Skin: Negative Neurological: Negative All Other Systems Reviewed And Are Negative: Yes Physical Exam Triage Information Reviewed: Yes Vital Signs On Initial Exam: Initial Vitals Temp Pulse Resp BP Pulse Ox 97.9 F 92 16 143/91 96 10/09/18 07:37 10/09/18 07:37 10/09/18 07:37 10/09/18 07:37 10/09/18 07:37 Vital Signs Reviewed: Yes Appearance: Positive: Well-Appearing, Well-Nourished Skin: Positive: Skin Color Reflects Adequate Perfusion Head/Face: Positive: Normal Head/Face Inspection Eyes: Positive: EOMI, Conjunctiva Clear Neck: Positive: Supple, No Lymphadenopathy Respiratory/Lung Sounds: Positive: Clear to Auscultation, Breath Sounds Present Cardiovascular: Positive: RRR, Pulses are Symmetrical in both Upper and Lower Extremities Musculoskeletal: Positive: Pain @ - right ankle swelling with pain on palpation - worse with plantar flexion. NV intacgt Neurological: Positive: Speech Normal Psychiatric: Positive: Affect/Mood Appropriate AVPU Assessment: Alert Diagnostics - Vital Signs Vital Signs Temp Pulse Resp BP Pulse Ox 10/09/18 07:37 97.9 F 92 16 143/91 96 - Laboratory Lab Statement: Any lab studies that have been ordered have been reviewed, and results considered in the medical decision making process. Lower Extremity Course/Dx - Course Course Of Treatment: During the course treatment, the patient is given ibuprofen 600mg by mouth for discomfort. X-ray obtained of the ankle shows soft tissue swelling without obvious signs of fracture. Patient has a crutch at bedside and states he is ambulating well with this. He is given a gel splint. He will follow up with orthopedics if symptoms worsen or change. - Diagnoses Differential Diagnosis/HQI/PQRI: Positive: Sprain, Strain Provider Diagnoses: Ankle sprain Discharge - Sign-Out/Discharge Documenting (check all that apply): Patient Departure Patient Received Moderate/Deep Sedation with Procedure: No - Discharge Plan Condition: Stable Disposition: HOME Patient Education Materials: Ankle Sprain (DC) Referrals: Alireza Culp NP [Primary Care Provider] - Additional Instructions: Ibuprofen 600mg three times daily Use crutches as needed continue with gel splint x 1 week - however ambulate as tolerated Continue your follow ups for your recent pneumonia as discussed - Billing Disposition and Condition Condition: STABLE Disposition: Home
[2018-10-09 08:53] VITALS: BP 136/88
== END 2018-10-09 08:51 | disposition home or self-care (01) ==
LOC: ED 07:35
DX: S93.401A Sprain of unspecified ligament of right ankle, initial encounter (principal); R60.9 Edema, unspecified; X50.9XXA Other and unspecified overexertion or strenuous movements or postures, initial encounter; Y92.9 Unspecified place or not applicable; I10 Essential (primary) hypertension
CPT/HCPCS: 99282; A9270-GY

== ENCOUNTER 2019-01-10 12:23 | Emergency (ER) | payer BC ==
--- OUTSIDE RECORDS SUMMARY | 2019-01-10 12:34 | XMS REPORT | Continuity of Care Document ---
:1985 External Reference #:[id number] Author Name ERICKA Rogers Address [address] [place] [address] Care Team Providers Name Role Phone ERICKA Rogers Care Team Information Statistical Consultant Unavailable Payers Date Identification Numbers Payment Provider Subscriber Effective: 2013 Policy Number: [id number] [facility] Dina Russell Group Name: [employer] [address] [address] PayID: [id number] [employer]NA Call 22521 Onset: 2015 Policy Number: [id number] Technology Ins [employer] Beto Russell PayID: TECHN [address] [place] [address] Social History Type Date Description Comments Sex Unknown Marital Status Diet Healthy, Well Balanced has made positive dietary changes, more water, no more soda, eating some vegetables Pets 2 dogs Occupation 09/01/2014 Currently Working produce at [employer] Tobacco Use Start: Unknown End: Former Cigarette Unknown Smoker Smokeless Tobacco Quit - Age 29 used to chew on can daily ETOH Use Rarely consumes alcohol Recreational Drug Use Denies Drug Use Tobacco Use Start: Unknown Patient has never smoked Tobacco Use Start: Unknown End: Former chewing tobacco Unknown Enjoy Exercising Enjoys exercising does not exercise Guns in Home Yes, Not Locked Up Allergies, Adverse Reactions, Alerts Description No Known Drug Allergies Medications Active Medications SIG Qnty Indications Ordering Date Provider Amoxicillin/Clavulana 1 by mouth twice a 20tabs J01.90 Alireza Ro 2018 te Potassium day for 10 days ERICKA Culp 875-125mg for infection Tablets Sertraline HCL 1 by mouth every 90tabs F41.9 Alireza R. 10/23/2016 100mg day [facility] Tablets Omeprazole Unknown 20mg Capsules DR Multivitamin Adult 1 by mouth every Unknown day Tablets History Medications Lisinopril Take One Tablet 30tabs I10 Filiberto 02/18/2018 - 10mg Tablets By Mouth Every MD Miranda 12/25/2018 Day Proctozone-HC apply to 30gm K64.8 Alireza RSiva 05/12/2017 - 2.5% Cream hemorrhoids 3 - [facility] 02/18/2018 4 times daily if needed Lisinopril take one tablet 30tabs I10 Alireza RSiva 10/23/2016 - 5mg Tablets by mouth every [facility] 02/18/2018 day Tizanidine HCL take one tablet 30tabs M54.5 Alireza RSiva 04/09/2016 - 4mg Tablets by mouth before [facility] 05/12/2017 bed for muscle tightness Meloxicam 1 by mouth every 30tabs M54.5 Filiberto 11/20/2015 - 15mg Tablets day MD Miranda 04/09/2016 Flexeril 1 tab by mouth 30tabs M54.5 [facility] 11/20/2015 - 10mg Tablets three times a MD Miranda 04/09/2016 day Ear Wax Cleansing instill 5 drops 113ml H61.21 Alireza Ro 07/03/2015 - 6.5% Kit into the right [facility] 04/09/2016 ear before bed each night for one week Tamiflu 1 by mouth twice 10caps J06.9 Noemi P. 07/01/2015 - 75mg Capsules per day for 5 Blegen, M.D. 04/09/2016 days Hydrochlorothiazide 1 by mouth every 30tabs 401.9 Alireza R. 10/07/2014 - 12.5mg day for blood [facility] 11/16/2014 Tablets pressure Nicoderm CQ apply 1 patch to 14units 305.1 Alireza Ro 09/01/2014 - 21mg/24HR Patches skin, change [facility] 09/01/2014 24HR daily for 14 days.then go to 14mg dose Nicoderm CQ apply one patch 14units 305.1 Shawnti R. 09/01/2014 - 14mg/24HR Patches to skin, replace Robbi [facility] 09/01/2014 24HR daily for 14 days, start after 21mg patches completed. Nicoderm CQ apply one patch 14units 305.1 Shawnti R. 09/01/2014 - 7mg/24HR Patches to skin, change Rbobi [facility] 10/07/2014 24HR daily for three weeks, start after 14mg dose is complete Sertraline HCL Take 1 And 1/2 45tabs Ismaelsamina R. - 50mg Tablets Tablets By Mouth Robbi [facility] 10/23/2016 Once Daily Penicillin V Potassium 4 times a day Unknown - 500mg 10/02/2018 Tablets Doxycycline Hyclate Unknown - 100mg 10/09/2018 Capsules Ventolin HFA inhale two puffs Unknown - 108(90Base) by mouth every 4 12/25/2018 mcg/Act Aerosol hours as needed for wheeze Levofloxacin Unknown - 750mg Tablets 12/25/2018 Benzonatate Unknown - 200mg Capsules 12/25/2018 Immunizations CPT Code Status Date Vaccine Lot # 27586 Given 05/12/2014 Tdap (Adacel) 77792 Refused 11/20/2015 Influenza Virus Vaccine, Quadrivalent, 3 Yr > Quad , Preserv Free Vital Signs Date Vital Result Comment 12/25/2018 3:10pm Weight 214.00 lb Weight 97.070 kg BP Systolic 124 mmHg BP Diastolic 80 mmHg Heart Rate 70 /min Body Temperature 97.8 F Respiratory Rate 16 /min Height 71 inches 5'11" BMI (Body Mass Index) 29.8 kg/m2 O2 % BldC Oximetry 98 % 10/09/2018 4:23pm BP Systolic 140 mmHg BP Diastolic 90 mmHg Heart Rate 100 /min Body Temperature 98.0 F Respiratory Rate 16 /min O2 % BldC Oximetry 99 % 10/02/2018 10:35am Weight 218.00 lb Weight 98.885 kg BP Systolic 142 mmHg BP Diastolic 80 mmHg Heart Rate 74 /min Body Temperature 97.8 F Respiratory Rate 20 /min O2 % BldC Oximetry 98 % 02/18/2018 4:31pm Weight 214.00 lb Weight 97.070 kg BP Systolic 145 mmHg BP Diastolic 95 mmHg Heart Rate 76 /min Body Temperature 97.4 F O2 % BldC Oximetry 99 % 12/25/2017 2:10pm Weight 212.00 lb Weight 96.163 kg BP Systolic 168 mmHg BP Diastolic 96 mmHg Heart Rate 82 /min Body Temperature 98.1 F Respiratory Rate 18 /min O2 % BldC Oximetry 98 % 09/22/2017 3:35pm Weight 210.00 lb Weight 95.256 kg BP Systolic 144 mmHg BP Diastolic 90 mmHg Heart Rate 80 /min Body Temperature 97.1 F Respiratory Rate 16 /min 07/11/2017 9:20am Weight 209.00 lb Weight 94.802 kg BP Systolic 120 mmHg BP Diastolic 80 mmHg Heart Rate 72 /min Body Temperature 98.2 F Respiratory Rate 14 /min Height 71 inches 5'11" BMI (Body Mass Index) 29.1 kg/m2 O2 % BldC Oximetry 98 % 06/12/2017 4:19pm Weight 210.00 lb Weight 95.256 kg BP Systolic 138 mmHg BP Diastolic 82 mmHg Heart Rate 78 /min Body Temperature 87.1 F O2 % BldC Oximetry 98 % 05/12/2017 2:47pm Weight 213.00 lb Weight 96.617 kg BP Systolic 142 mmHg BP Diastolic 98 mmHg Heart Rate 92 /min Body Temperature 96.3 F Respiratory Rate 18 /min Height 71 inches 5'11" BMI (Body Mass Index) 29.7 kg/m2 11/11/2016 3:45pm Weight 222.00 lb Weight 100.699 kg BP Systolic 132 mmHg BP Diastolic 80 mmHg Heart Rate 76 /min Body Temperature 97.0 F Respiratory Rate 20 /min 10/23/2016 4:49pm Weight 226.00 lb Weight 102.514 kg BP Systolic 140 mmHg BP Diastolic 84 mmHg Heart Rate 80 /min Body Temperature 99.0 F Respiratory Rate 12 /min 05/07/2016 8:44am Weight 229.00 lb Weight 103.874 kg BP Systolic 165 mmHg BP Diastolic 100 mmHg Heart Rate 76 /min 04/09/2016 10:25am Weight 227.00 lb Weight 102.967 kg BP Systolic 136 mmHg BP Diastolic 88 mmHg Heart Rate 80 /min Body Temperature 97.9 F Respiratory Rate 18 /min Height 71 inches 5'11" BMI (Body Mass Index) 31.7 kg/m2 12/12/2015 10:10am Weight 226.00 lb Weight 102.514 kg BP Systolic 130 mmHg BP Diastolic 90 mmHg Heart Rate 78 /min 11/20/2015 10:40am Weight 225.00 lb Weight 102.060 kg BP Systolic 158 mmHg BP Diastolic 100 mmHg Heart Rate 72 /min Body Temperature 97.7 F 07/24/2015 4:12pm Weight 233.00 lb Weight 105.689 kg BP Systolic 150 mmHg BP Diastolic 96 mmHg Heart Rate 84 /min 07/17/2015 3:49pm Weight 227.00 lb Weight 102.967 kg BP Systolic 150 mmHg BP Diastolic 100 mmHg Heart Rate 72 /min 07/10/2015 3:53pm Weight 226.00 lb Weight 102.514 kg BP Systolic 148 mmHg BP Diastolic 102 mmHg Heart Rate 84 /min 07/03/2015 10:41am Weight 224.00 lb Weight 101.606 kg BP Systolic 130 mmHg BP Diastolic 90 mmHg Heart Rate 71 /min 07/01/2015 9:13am Weight 227.00 lb Weight 102.967 kg BP Systolic 148 mmHg BP Diastolic 100 mmHg Heart Rate 82 /min Body Temperature 98.7 F 04/25/2015 9:22am Weight 218.00 lb Weight 98.885 kg BP Systolic 158 mmHg BP Diastolic 110 mmHg Heart Rate 76 /min Body Temperature 97.5 F Right Visual Acuity Distance 20/25 Left Visual Acuity Distance 20/25 Both Visual Acuity Distance 20/25 O2 % BldC Oximetry 98 % 10/07/2014 8:34am Weight 206.00 lb Weight 93.442 kg BP Systolic 150 mmHg BP Diastolic 100 mmHg Heart Rate 72 /min Height 71 inches 5'11" BMI (Body Mass Index) 28.7 kg/m2 09/01/2014 9:24am Weight 206.00 lb Weight 93.442 kg BP Systolic 160 mmHg BP Diastolic 120 mmHg Heart Rate 60 /min Height 71 inches 5'11" BMI (Body Mass Index) 28.7 kg/m2 Results Test Date Facility Test Result H/L Range Note CBC Auto 09/27/2018 [facility] Laboratory White Blood 10.0 10^3/ uL N 3.5-10.8 Diff [phone] Count Red Blood Count 5.02 10^6/uL N 4.00-5.40 Hemoglobin 15.3 g/dL N 14.0-18.0 Hematocrit 45 % N 42-52 Mean Corpuscular Volume 89 fL N 80-94 Mean Corpuscular Hemoglobin 30 pg N 27-31 Mean Corpuscular HGB Conc 34 g/dL N 31-36 Red Cell Distribution Width 13 % N 10.5-15 Platelet Count 313 10^3/uL N 150-450 Mean Platelet Volume 8.8 fL N 7.4-10.4 Abs Neutrophils 6.6 10^3/uL N 1.5-7.7 Abs Lymphocytes 2.5 10^3/uL N 1.0-4.8 Abs Monocytes 0.7 10^3/uL N 0-0.8 Abs Eosinophils 0.1 10^3/uL N 0-0.6 Abs Basophils 0.1 10^3/uL N 0-0.2 Abs Nucleated RBC 0 10^3/uL Granulocyte % 65.9 % Lymphocyte % 25.0 % Monocyte % 7.4 % Eosinophil % 0.7 % Basophil % 1.0 % Nucleated Red Blood Cells % 0 Laboratory test 09/27/2018 [facility] Laboratory D Dimer < 200 N Less Than 1 finding [phone] Quantitative ng/mL 230 Lactic Acid 1.4 mmol/L N 0.5-2.0 2 Comp Metabolic Panel 09/27/2018 [facility] Laboratory Sodium 137 mmol/L N 135-145 [phone] Potassium 4.1 mmol/L N 3.5-5.0 Chloride 103 mmol/L N 101-111 Co2 Carbon Dioxide 28 mmol/L N 22-32 Anion Gap 6 mmol/L N 2-11 Glucose 87 mg/dL N 70-100 Blood Urea Nitrogen 15 mg/dL N 6-24 Creatinine 0.92 mg/dL N 0.67-1.17 BUN/Creatinine Ratio 16.3 N 8-20 Calcium 9.4 mg/dL N 8.6-10.3 Total Protein 7.3 g/dL N 6.4-8.9 Albumin 4.4 g/dL N 3.2-5.2 Globulin 2.9 g/dL N 2-4 Albumin/Globulin Ratio 1.5 N 1-3 Total Bilirubin 0.30 mg/dL N 0.2-1.0 Alkaline Phosphatase 70 U/L N 34-104 Alt 22 U/L N 7-52 Ast 17 U/L N 13-39 Egfr Non- 94.2 >60 Egfr 114.0 >60 3 Laboratory test 09/27/2018 [facility] Laboratory C Reactive 1.23 mg/L N <8.01 finding [phone] Protein Troponin-I (TnI) 0.00 ng/mL <0.04 4 Rapid Influenza 09/23/2018 [facility] Laboratory Influenza A NEGATIVE Negative 5 A & B Molecular [phone] Molecular Influenza B Molecular NEGATIVE Negative Lyme Disease 09/23/2018 [facility] Laboratory B burgdorferi Negative Negative PCR [phone] PCR, Blood B mayonii PCR Negative Negative B garinii/B afzelii PCR Negative Negative Lyme Disease PCR Comment See Comment 6 Laboratory test 09/23/2018 [facility] Laboratory Magnesium 2.0 mg/dL N 1.9-2.7 finding [phone] C Reactive Protein 2.32 mg/L N <8.01 TSH (Thyroid Stimulating Horm) 4.85 mcIU/mL N 0.34-5.60 Comp Metabolic Panel 09/23/2018 [facility] Laboratory Sodium 137 mmol/L N 135-145 [phone] Potassium 4.4 mmol/L N 3.5-5.0 Chloride 101 mmol/L N 101-111 Co2 Carbon Dioxide 28 mmol/L N 22-32 Anion Gap 8 mmol/L N 2-11 Glucose 93 mg/dL N 70-100 Blood Urea Nitrogen 15 mg/dL N 6-24 Creatinine 0.97 mg/dL N 0.67-1.17 BUN/Creatinine Ratio 15.5 N 8-20 Calcium 9.5 mg/dL N 8.6-10.3 Total Protein 7.9 g/dL N 6.4-8.9 Albumin 4.7 g/dL N 3.2-5.2 Globulin 3.2 g/dL N 2-4 Albumin/Globulin Ratio 1.5 N 1-3 Total Bilirubin 0.40 mg/dL N 0.2-1.0 Alkaline Phosphatase 80 U/L N 34-104 Alt 26 U/L N 7-52 Ast 23 U/L N 13-39 Egfr Non- 88.6 >60 Egfr 107.2 >60 7 Laboratory test 09/23/2018 [facility] Laboratory Influenza A & B SEE RESULT 8 finding [phone] Request BELOW CBC Auto Diff 09/23/2018 [facility] Laboratory White Blood 13.5 High 3.5-0 [phone] Count 10^3/uL 0.8 Red Blood Count 5.16 10^6/uL N 4.00-5.40 Hemoglobin 16.0 g/dL N 14.0-18.0 Hematocrit 47 % N 42-52 Mean Corpuscular Volume 91 fL N 80-94 Mean Corpuscular Hemoglobin 31 pg N 27-31 Mean Corpuscular HGB Conc 34 g/dL N 31-36 Red Cell Distribution Width 13 % N 10.5-15 Platelet Count 322 10^3/uL N 150-450 Mean Platelet Volume 8.7 fL N 7.4-10.4 Abs Neutrophils 9.8 10^3/uL High 1.5-7.7 Abs Lymphocytes 2.6 10^3/uL N 1.0-4.8 Abs Monocytes 0.9 10^3/uL High 0-0.8 Abs Eosinophils 0 10^3/uL N 0-0.6 Abs Basophils 0.1 10^3/uL N 0-0.2 Abs Nucleated RBC 0 10^3/uL Granulocyte % 72.7 % Lymphocyte % 19.3 % Monocyte % 7.0 % Eosinophil % 0.3 % Basophil % 0.7 % Nucleated Red Blood Cells % 0 Laboratory test 10/22/2016 [facility] Laboratory Lactic Acid 1.2 mmol/L N 0.5-2.0 9 finding [phone] Comp Metabolic 10/22/2016 [facility] Laboratory Sodium 137 mmol/ L N 133-145 Panel [phone] Potassium 4.1 mmol/L N 3.5-5.0 Chloride 101 mmol/L N 101-111 Co2 Carbon Dioxide 28 mmol/L N 22-32 Anion Gap 8 mmol/L N 2-11 Glucose 108 mg/dL High 70-100 Blood Urea Nitrogen 16 mg/dL N 6-24 Creatinine 0.97 mg/dL N 0.67-1.17 BUN/Creatinine Ratio 16.5 N 8-20 Calcium 9.7 mg/dL N 8.6-10.3 Total Protein 8.0 g/dL N 6.4-8.9 Albumin 4.5 g/dL N 3.2-5.2 Globulin 3.5 g/dL N 2-4 Albumin/Globulin Ratio 1.3 N 1-3 Total Bilirubin 0.50 mg/dL N 0.2-1.0 Alkaline Phosphatase 84 U/L N 34-104 Alt 31 U/L N 7-52 Ast 25 U/L N 13-39 Egfr Non- 89.7 N >60 Egfr 115.4 N >60 10 Laboratory test 10/22/2016 [facility] Laboratory Troponin-I (TnI ) 0.00 ng/mL N <0.04 11 finding [phone] TSH (Thyroid Stimulating Horm) 2.61 mcIU/mL N 0.34-5.60 Urinalysis Profile 10/22/2016 [facility] Laboratory Urine Color Yellow N [phone] Urine Appearance Clear N Urine Specific [place] 1.023 N 1.010-1.030 Urine pH 5.0 N 5-9 Urine Urobilinogen Negative N Negative Urine Ketones Negative N Negative Urine Protein Negative N Negative Urine Leukocytes Negative N Negative Urine Blood Negative N Negative Urine Nitrite Negative N Negative Urine Bilirubin Negative N Negative Urine Glucose Negative N Negative CBC Auto Diff 10/22/2016 [facility] Laboratory White Blood 9.8 10^3/uL N 3.5-10.8 [phone] Count Red Blood Count 5.13 10^6/uL N 4.0-5.4 Hemoglobin 15.5 g/dL N 14.0-18.0 Hematocrit 46 % N 42-52 Mean Corpuscular Volume 89 fL N 80-94 Mean Corpuscular Hemoglobin 30 pg N 27-31 Mean Corpuscular HGB Conc 34 g/dL N 31-36 Red Cell Distribution Width 13 % N 10.5-15 Platelet Count 328 10^3/uL N 150-450 Mean Platelet Volume 9 um3 N 7.4-10.4 Abs Neutrophils 7.0 10^3/uL N 1.5-7.7 Abs Lymphocytes 2.0 10^3/uL N 1.0-4.8 Abs Monocytes 0.7 10^3/uL N 0-0.8 Abs Eosinophils 0.1 10^3/uL N 0-0.6 Abs Basophils 0.1 10^3/uL N 0-0.2 Abs Nucleated RBC 0 10^3/uL N Granulocyte % 71.4 % N 38-83 Lymphocyte % 20.4 % Low 25-47 Monocyte % 6.8 % N 1-9 Eosinophil % 0.5 % N 0-6 Basophil % 0.9 % N 0-2 Nucleated Red Blood Cells % 0 N Urine DIP 07/01/2015 In House Lab Specific [place] 1.010 1.01-1.02 (607)- - Urine pH 5 5-6 Leukocytes NEG Neg Urine Nitrites NEG Neg Total Protein, Urine TRACE Neg Urine Glucose NORM Norm Urine Ketones NEG Neg Urobilinogen NORM Norm Urine Bilirubin NEG Neg Urine Blood NEG Neg Laboratory test 07/01/2015 In House Lab Flu Test A&B, NEG finding (607)- - Quickvue CBC No Diff 10/07/2014 [facility] Laboratory White Blood 8.3 10^ 3/uL N 4.8-10. [phone] Count 8 Red Blood Count 5.33 10^6/uL N 4.0-5.4 Hemoglobin 16.8 g/dL N 14.0-18.0 Hematocrit 47 % N 42-52 Mean Corpuscular Volume 89 fL N 80-94 Mean Corpuscular Hemoglobin 31 pg N 27-31 Mean Corpuscular HGB Conc 35 g/dL N 31-36 Red Cell Distribution Width 13 % N 10.5-15 Platelet Count 395 10^3/uL N 150-450 Mean Platelet Volume 9 um3 N 7.4-10.4 Comp Metabolic Panel 10/07/2014 [facility] Laboratory Sodium 137 mmol/L N 133-145 [phone] Potassium 4.1 mmol/L N 3.5-5.0 Chloride 100 mmol/L Low 101-111 Co2 Carbon Dioxide 27 mmol/L N 22-32 Anion Gap 10 mmol/L N 2-11 Glucose 99 mg/dL N 70-100 Blood Urea Nitrogen 17 mg/dL N 6-24 Creatinine 0.94 mg/dL N 0.67-1.17 BUN/Creatinine Ratio 18.1 N 8-20 Calcium 10.1 mg/dL N 8.6-10.3 Total Protein 8.3 g/dL N 6.4-8.9 Albumin 4.8 g/dL N 3.2-5.2 Globulin 3.5 g/dL N 2-4 Albumin/Globulin Ratio 1.4 N 1-3 Total Bilirubin 0.40 mg/dL N 0.2-1.0 Alkaline Phosphatase 87 U/L N 34-104 Alt 40 U/L N 7-52 Ast 27 U/L N 13-39 Egfr Non- 94.2 N >60 Egfr 121.2 N >60 12 Lipid Profile 10/07/2014 [facility] Laboratory Triglycerides 547 mg/dL N 13 (Trig/Chol/HDL) [phone] Cholesterol 233 mg/dL N 14 HDL Cholesterol 34.2 mg/dL N 15 LDL Cholesterol (SEE NOTE) mg/dL N 16 Laboratory test 10/07/2014 [facility] Laboratory TSH (Thyroid 5.01 IU/mL N 0.34-5.60 finding [phone] Stimulating Horm) Urine DIP 10/07/2014 In House Lab Specific [place] 1.020 1.01-1.02 (607)- - Urine pH 5 5-6 Leukocytes NEG Neg Urine Nitrites NEG Neg Total Protein, Urine NEG Neg Urine Glucose NORM Norm Urine Ketones NEG Neg Urobilinogen NORM Norm Urine Bilirubin NEG Neg Urine Blood NEG Neg 1 Please note: The following may produce a false positive D Dimer test: - Rheumatoid factor greater than 60 IU/ml - Plasma hemoglobin greater than 0.05 gm/dl - Bilirubin greater than 50 mg/dl - Lipids greater than 1000 mg/dl - FDP greater than 20 ug/ml 2 [facility] Severe Sepsis and Septic Shock Management Bundle Measure requires all lactic acids initially measuring >2.0 mmol/L be repeated. 3 Because ethnic data is not always readily available, this report includes an eGFR for both -Americans and non- Americans. The National Kidney Disease Education Program (NKDEP) does not endorse the use of the MDRD equation for patients that are not between the ages of 18 and 70, are , have extremes of body size, muscle mass, or nutritional status, or are non- or non-. According to the National Kidney Foundation, irrespective of diagnosis, the stage of the disease is based on the level of kidney function: Stage Description GFR(mL/min/1.73 m(2)) 1 Kidney damage with normal or decreased GFR 90 2 Kidney damage with mild decrease in GFR 60-89 3 Moderate decrease in GFR 30-59 4 Severe decrease in GFR 15-29 5 Kidney failure <15 (or dialysis) 4 Troponin-I testing on Plasma Separator Tubes (PST) has a known false positive rate of 0.20-0.40%. All positive troponins reflex immediate secondary confirmatory testing. 5 Slot Operations Director: [id number] 6 A negative result does not exclude infection with Borrelia burgdorferi. Serologic testing as per CDC guidelines may be indicated. ADDITIONAL INFORMATION This test was developed and its performance characteristics determined by [facility] in a manner consistent with CLIA requirements. This test has not been cleared or approved by the U.S. Food and Drug Administration. Test Performed by: [facility] - [address] [address] 7 Because ethnic data is not always readily available, this report includes an eGFR for both -Americans and non- Americans. The National Kidney Disease Education Program (NKDEP) does not endorse the use of the MDRD equation for patients that are not between the ages of 18 and 70, are , have extremes of body size, muscle mass, or nutritional status, or are non- or non-. According to the National Kidney Foundation, irrespective of diagnosis, the stage of the disease is based on the level of kidney function: Stage Description GFR(mL/min/1.73 m(2)) 1 Kidney damage with normal or decreased GFR 90 2 Kidney damage with mild decrease in GFR 60-89 3 Moderate decrease in GFR 30-59 4 Severe decrease in GFR 15-29 5 Kidney failure <15 (or dialysis) 8 SEE RESULT BELOW Name: BETO RUSSELL DOB: [address]: Jose C Farrar MD Acct: [id number] Unit: [id number] AGE: 33 Location: ED Re09/23/18 SEX: M Status: REG ER SPEC: [id number] EMI: 09/23/[address]: Chantel EMANUEL REQ: [id number] RECD: 09/23/18 STATUS: SHANA CASTRO DR: Jose C Culp 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 _ SOURCE: NASAL SPDESC: ORDERED: Flu A B Request Procedure Result Reported Site Rapid Influenza A B Request Final 09/23/18- 1930 ML Specimen received for Influenza A/B Molecular testing * ML - Main Lab . END OF REPORT DEPARTMENT OF PATHOLOGY, [address] [place] [address] Vadim Savage M.D. Director [facility] # [id number] [facility] Severe Sepsis and Septic Shock Management Bundle Measure requires all lactic acids initially measuring >2.0 mmol/L be repeated. 10 Because ethnic data is not always readily available, this report includes an eGFR for both -Americans and non- Americans. The National Kidney Disease Education Program (NKDEP) does not endorse the use of the MDRD equation for patients that are not between the ages of 18 and 70, are , have extremes of body size, muscle mass, or nutritional status, or are non- or non-. According to the National Kidney Foundation, irrespective of diagnosis, the stage of the disease is based on the level of kidney function: Stage Description GFR(mL/min/1.73 m(2)) 1 Kidney damage with normal or decreased GFR 90 2 Kidney damage with mild decrease in GFR 60-89 3 Moderate decrease in GFR 30-59 4 Severe decrease in GFR 15-29 5 Kidney failure <15 (or dialysis) 11 99th percentile=0.04 ng/mL Troponin results at [facility] and [facility] are not interchangeable. 12 Because ethnic data is not always readily available, this report includes an eGFR for both -Americans and non- Americans. The National Kidney Disease Education Program (NKDEP) does not endorse the use of the MDRD equation for patients that are not between the ages of 18 and 70, are , have extremes of body size, muscle mass, or nutritional status, or are non- or non-. According to the National Kidney Foundation, irrespective of diagnosis, the stage of the disease is based on the level of kidney function: Stage Description GFR(mL/min/1.73 m(2)) 1 Kidney damage with normal or decreased GFR 90 2 Kidney damage with mild decrease in GFR 60-89 3 Moderate decrease in GFR 30-59 4 Severe decrease in GFR 15-29 5 Kidney failure <15 (or dialysis) 13 Desirable <150 Borderline high 150-199 High 200-499 Very High >500 14 Desirable <200 Borderline high 200-239 High >239 15 Low <40 Desirable: 40-60 High: >60 16 Unable to calculate LDL as triglyceride is > 400 Procedures Date Code Description Status 09/22/2017 62472 I&D Of Abscess Completed 09/22/2017 90341 I&D Of Abscess Completed 07/24/2015 07433 Removal-Impacted Cerumen Completed 07/17/2015 32681 Removal-Impacted Cerumen Completed 07/10/2015 98602 Removal-Impacted Cerumen Completed 07/03/2015 24169 Removal-Impacted Cerumen Completed 10/07/2014 26905 EKG, at Least 12 Leads w/Interpretation and Report Completed Encounters Type Date Location Provider Dx Diagnosis Office Visit 10/09/2018 Main Office Sandra Rogers18.9 Pneumonia, unspecified 4:30p [employer] [facility] organism Office Visit 10/02/2018 Main Office Sandra Oakley18.9 Pneumonia, unspecified 10:45a organism Office Visit 02/18/2018 Main Office Filiberto Jean, I10 Essential ( primary) 4:30p hypertension K04.6 Periapical abscess with sinus Office Visit 12/25/2017 [facility] S80.211A Abrasion, right 2:15p MD Miranda knee, initial encounter S83.401A Sprain of unsp collateral ligament of right knee, init Office Visit 07/11/2017 9:30a Main Office Bouchra J06.9 Acute upper Shortle, 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 respiratory infection, unspecified Office Visit 06/12/2017 4:15p Main Office Filiberto R42 Dizziness and MD Miranda giddiness Office Visit 05/12/2017 2:45p Main Office Alireza Ro Z00.00 Encntr for general Storm, [employer] adult medical exam w/o abnormal findings I10 Essential (primary) hypertension K64.8 Other hemorrhoids Office Visit 11/11/2016 3:45p Main Office Alireza Culp I10 Essential (primary) [employer] hypertension Office Visit 10/23/2016 4:45p Main Office Una Lenz, I10 Essential ( primary) [employer] hypertension F41.9 Anxiety disorder, unspecified Office Visit 05/07/2016 8:45a Main Office Alireza Ro S46.811D Strain of Storm, [employer] musc/fasc/tend at shldr/up arm, right arm, subs Office Visit 04/09/2016 10:30a Main Office Alireza Ro M54.5 Low back pain Storm, [employer] S46.811A Strain of musc/fasc/tend at shldr/up arm, right arm, init Office Visit 12/12/2015 10:15a Main Office Alireza Ro S61.214D Laceration w/o fb Storm, [employer]ER-C of r rng fngr w/o damage to nail, subs S61.214D Laceration w/o fb of r rng fngr w/o damage to nail, subs S61.214D Laceration w/o fb of r rng fngr w/o damage to nail, subs Office Visit 11/20/2015 10:45a Main Office Filiberto Jean MD M54.5 Low back pain I10 Essential (primary) hypertension Office Visit 07/01/2015 9:15a Main Office Noemi Hurtado J06.9 Acute upper Blegen, M.D. respiratory infection, unspecified R30.0 Dysuria H61.21 Impacted cerumen, right ear Office Visit 04/25/2015 9:30a Main Office Manny Newman S00.261A Insect bite of III, [employer] right eyelid and periocular area, init Office Visit 10/07/2014 8:45a Main Office Alireza Ro V70.0 Examination Storm, [employer]ER-C General Medical Routine AT [facility] 401.9 Hypertension Unspec 796.2 Blood Pressure Reading Elevated W/O Hypertension Office Visit 09/01/2014 9:30a Main Office Alireza Ro 796.2 Blood Pressure Storm, [employer]-C Reading Elevated W/O Hypertension 305.1 Tobacco Use Disorder Plan of Treatment 12/25/2018 - INDU Rogers-CZ00.00 Encounter for general adult medical examination without abnoRecommendations:proper diet and exercise are very important for overall health. You should eat at least 5 servings of fruits and vegetables every day, this can be fresh or frozen. You should try to get at least 24 grams of fiber in your diet each day, this can be found in whole grains like wheat, brown rice, oats, Quinoa and fruits and vegetables. You should choose lean proteins such as fish, poultry, beans and legumes. You also need at least 4 servings of calcium rich foods daily, this can be in a supplement, dairy or broccoli. You should get at least 30 minutes of exercise on a daily basis, choose activities that make you feel winded but still able to talk, you should sweat and your heart rate should go up. If you have chest pain you should stop. If you can not do thirty minutes of exercise then do what you can and work towards this goal.J01.90 Acute sinusitis, unspecifiedNew Medication :Amoxicillin/Clavulanate Potassium 875-125 mg - 1 by mouth twice a day for 10 days for infectionComments:treat with augmentin, fluids, contact clinic if sx worsen or fail to improve
--- NOTE | 2019-01-10 13:18 | ED ---
Respiratory - HPI Summary HPI Summary: This patient is a 33 year old M presenting to ED with a chief complaint of lingering cough following a cold since two weeks ago. Patient was placed an antibiotics (he does not remember which one) which he took for 10 days, but he reports feeling weird. Patient has a history of HTN, but was taken off of his 10mg Lisinopril after a physical on 12/24 where his blood pressure was normal. Today, the patient is hypertensive. Patient previously had PNA on September 23 . The patient rates the pain 4/10 in severity. Symptoms aggravated by nothing. Symptoms alleviated by nothing. Patient denies SOB. PMHx of HTN, hypoplastic lung, anxiety. FHx of HTN. Patient occasionally uses alcohol, uses smokeless tobacco, but no substances. - History of Current Complaint Chief Complaint: EDUpperRespComplaint Stated Complaint: JUST NOT FEELING WELL Time Seen by Provider: 01/10/19 13:08 Hx Obtained From: Patient Onset/Duration: Lasting Weeks, Still Present Initial Severity: Moderate Current Severity: Moderate Pain Intensity: 4 Character: Cough (Nonproductive) Aggravating Factor(s): Nothing Alleviating Factor(s): Nothing Associated Signs and Symptoms: Negative - SOB - Allergy/Home Medications Allergies/Adverse Reactions: Allergies Allergy/AdvReac Type Severity Reaction Status Date / Time shellfish derived Allergy Hives Verified 10/09/18 07:40 PMH/Surg Hx/FS Hx/Imm Hx Previously Healthy: No Endocrine/Hematology History: Denies: Hx Anticoagulant Therapy, Hx Diabetes Cardiovascular History: Reports: Hx Hypertension Respiratory History: Reports: Hx Sleep Apnea, Other Respiratory Problems/ Disorders - Has hypolastic lung History: Denies: Hx Renal Disease Psychiatric History: Reports: Hx Anxiety - Surgical History Surgery Procedure, Year, and Place: Bronchoscope - Immunization History Date of Tetanus Vaccine: utd Date of Influenza Vaccine: none Infectious Disease History: No Infectious Disease History: Denies: Traveled Outside the [place] in Last 30 Days - Family History Known Family History: Positive: Hypertension - Hx in mother and father Negative: Cardiac Disease, Diabetes - Social History Alcohol Use: Occasionally Hx Substance Use: No Substance Use Type: Reports: None Hx Tobacco Use: Yes Smoking Status (MU): Never Smoked Tobacco Type: Smokeless Tobacco Amount Used/How Often: 1 tin/day Review of Systems Constitutional: Other - Hypertensive Positive: Cough. Negative: Shortness Of Breath All Other Systems Reviewed And Are Negative: Yes Physical Exam - Summary Physical Exam Summary: Appearance: The patient is well-nourished in no acute distress and in no acute pain. Skin: The skin is warm and dry and skin color reflects adequate perfusion. HEENT: The head is normocephalic and atraumatic. The pupils are equal and reactive. The conjunctivae are clear and without drainage. Nares are patent and without drainage. Mouth reveals moist mucous membranes and the throat is without erythema and exudate. The external ears are intact. The ear canals are patent and without drainage. The tympanic membranes are intact. Neck: The neck is supple with full range of motion and non-tender. There are no carotid bruits. There is no neck vein distension. Respiratory: Decreased breath sounds at base of the right lung Cardiovascular: Heart is regular rate and rhythm. There is no murmur or rub auscultated. There is no peripheral edema and pulses are symmetrical and equal. Abdomen: The abdomen is soft and non-tender. There are normal bowel sounds heard in all four quadrants and there is no organomegaly palpated. Musculoskeletal: There is no back tenderness noted. Extremities are non-tender with full range of motion. There is good capillary refill. There is no peripheral edema or calf tenderness elicited. Neurological: Patient is alert and oriented to person, place and time. The patient has symmetrical motor strength in all four extremities. Cranial nerves are grossly intact. Deep tendon reflexes are symmetrical and equal in all four extremities. Psychiatric: The patient has an appropriate affect and does not exhibit any anxiety or depression. Triage Information Reviewed: Yes Vital Signs On Initial Exam: Initial Vitals Temp Pulse Resp BP Pulse Ox 97.7 F 82 18 163/117 99 01/10/19 12:24 01/10/19 12:24 01/10/19 12:24 01/10/19 12:24 01/10/19 12:24 Vital Signs Reviewed: Yes Diagnostics - Vital Signs Vital Signs Temp Pulse Resp BP Pulse Ox 01/10/19 12:24 97.7 F 82 18 163/117 99 - Laboratory Lab Statement: Any lab studies that have been ordered have been reviewed, and results considered in the medical decision making process. 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 Dr. Lopez has reviewed this radiology report. Re-Evaluation - Re-Evaluation First Eval Re-Evaluation Time: 14:41 Comment: Discussed results with patient. Patient will be discharged home with dx of hypertension. Patient understands and agrees with this plan. Disposition - Course Course Of Treatment: Mr. Russell presented with 2 complaints. One is that he was recently treated for URI and he still has a little residual cough. The others that he hasn't felt quite right today and he took his blood pressure work and it was elevated. He has been on blood pressure medication for quite some time but he ran out and was off of it for about 3 or 4 days before an appointment with his PCP 3 weeks ago. His blood pressure was fine in the office and they suggested trying to go off it. He was nontoxic in appearance here in the emergency department. His blood pressure was quite high on arrival. He came down nicely on its own here in the emergency department. It was still elevated but certainly not in a symptomatic range. Chest x-ray showed no residual infection. I recommended that he restart his lisinopril and follow-up with his PCP. I reassured him that his residual cough should resolve on its own. - Diagnoses Provider Diagnoses: HTN (hypertension) Discharge - Sign-Out/Discharge Documenting (check all that apply): Patient Departure - Discharge Patient Received Moderate/Deep Sedation with Procedure: No - Discharge Plan Condition: Stable Disposition: HOME Prescriptions: Lisinopril TAB* [Prinivil TAB 10 MG*] 10 mg PO DAILY #30 tab Patient Education Materials: Hypertension (ED) Referrals: Alireza Culp, [employer]PERATOR [Primary Care Provider] - 3 Days Additional Instructions: Follow up with your primary care provider in 2-3 days. RETURN TO THE ER FOR WORSENING OR CHANGING SYMPTOMS. - Billing Disposition and Condition Condition: STABLE Disposition: Home - Attestation Statements Document Initiated by Casa: Yes Documenting Scribe: Segundo Merlos Provider For Whom Casa is Documenting (Include Credential): Galen Lopez MD Scribe Attestation: Segundo Patel, scribed for Galen Lopez MD on 01/10/19 at 1714. Scribe Documentation Reviewed: Yes Provider Attestation: The documentation as recorded by the Segundo arias accurately reflects the service I personally performed and the decisions made by me, Galen Lopez MD Status of Scribe Document: Viewed
[2019-01-10 15:07] VITALS: BP 149/96
== END 2019-01-10 15:06 | disposition home or self-care (01) ==
LOC: ED 12:23
DX: I10 Essential (primary) hypertension (principal); F17.290 Nicotine dependence, other tobacco product, uncomplicated
CPT/HCPCS: 71046; 99282